=== PATIENT | female | born 2000 | race Caucasian/White ===

== ENCOUNTER 2021-12-09 23:07 | Emergency (ER) | payer MEDICAID ==
[~2021-12-09] VITALS: Ht 162.6 cm; Wt 74.8 kg
[2021-12-09 23:10] VITALS: BP 136/101
--- NOTE | 2021-12-09 23:10 | NUR ---
PT BIBA BLS ER BED 12
--- NOTE | 2021-12-09 23:20 | NUR ---
[place] [employer] AT BEDSIDE
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
[2021-12-09 23:41] LABS: HEMATOCRIT 40.7 % (36-48); HEMOGLOBIN 13.5 g/dL (12.0-16.0); MEAN CORPUSCULAR HEMOGLOBIN 30 pg (27-31); MEAN CORPUSCULAR HGB CONC 33 g/dL (33-37); MEAN CORPUSCULAR VOLUME 89.1 fL (80-94); RED BLOOD CELL COUNT(AUTO) 4.57 MIL/uL (4.20-5.40)
[2021-12-09 23:42] LABS: BASOPHILS # (AUTO) 0.1 K/uL (0.00-0.22); BASOPHILS % (AUTO) 0.3 % (0.0-2.0); EOSINOPHILS # (AUTO) 0.1 K/uL (0-0.4); EOSINOPHILS % (AUTO) 1.4 % (0.0-4.0); LYMPHOCYTES % (AUTO) 37.8 % (20.5-51.1); MONOCYTES # (AUTO) 0.3 K/uL (0.8-1.0); MONOCYTES % (AUTO) 4.2 % (1.7-9.3); NEUTROPHILS # (AUTO) 4.5 K/uL (1.8-7.7); NEUTROPHILS % (AUTO) 56.3 % (42.2-75.2); PLATELET COUNT (AUTO) 288 K/uL (140-450); RED CELL DISTRIBUTION WIDTH 15.3 % (11.6-13.7)
[2021-12-09 23:55] LABS: CARBON DIOXIDE 25.5 mmol/L (21-32); CREATININE 0.6 mg/dL (0.6-1.3); POTASSIUM 3.5 mmol/L (3.5-5.1); TOTAL BILIRUBIN 0.1 mg/dL (0.0-1.0)
[2021-12-09 23:56] LABS: ALBUMIN 3.7 g/dL (3.4-5.0)
--- NOTE | 2021-12-09 23:56 | NUR ---
PATIENT AMBULATED TO THE AND BACK TO BED. URINE COLLECTED
--- NOTE | 2021-12-10 00:22 | NUR ---
[facility] AT BEDSIDE
[2021-12-10 01:12] VITALS: BP 136/101
--- NOTE | 2021-12-10 01:12 | NUR ---
PATIENT ELOPED FROM FACILITY. DISCHARGE INSTRUCTIONS NOT GIVEN TO PATIENT. DR. GORMAN NOTIFIED.
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
== END 2021-12-10 01:12 | disposition left against medical advice (07) ==
LOC: MED 23:07
DX: S09.90XA Unspecified injury of head, initial encounter (principal); M25.511 Pain in right shoulder; F10.129 Alcohol abuse with intoxication, unspecified; Y04.2XXA Assault by strike against or bumped into by another person, initial encounter; Y93.89 Activity, other specified; Y92.89 Other specified places as the place of occurrence of the external cause; Y99.8 Other external cause status
CPT/HCPCS: 36415; 71045; 73020; 73060; 80053; 81025; 85025; 85610; 85730; 99284; G0482; Q0092